=== PATIENT | male | born 1995 | race Hispanic/Latino ===

== ENCOUNTER 2019-12-04 14:36 | Emergency (ER) | payer OTHER | END 2019-12-04 17:03 | disposition home or self-care (01) | LOC: EDH 14:36 | DX: J06.9 Acute upper respiratory infection, unspecified (principal) | CPT/HCPCS: 87804 ==

== ENCOUNTER 2024-06-03 12:21 | Emergency (ER) | payer OTHER ==
[~2024-06-03] VITALS: Ht 162.6 cm; Wt 74.8 kg
[2024-06-03] MEDS ORDERED: EPINEPHRINE PF 1MG (1:1,000) 1 MG/ML AMP IM ONE (12:30)
[2024-06-03] MEDS: RACEPINEPHRINE HCL 2.25% 0.5 ML NEB SOLN NEB SCH (12:40)
[2024-06-03 12:42] VITALS: PULSE 73; RESP 18
[2024-06-03] MEDS: DiphenhydrAMINE HCL 50 MG/ML VIAL IV ONE (13:07)
[2024-06-03] MEDS: ONDANSETRON 4MG INJ IVP ONE (13:07)
[2024-06-03] MEDS: FAMOTIDINE 20MG VIAL IV ONE (13:07)
[2024-06-03] MEDS: DEXAMETHASONE SOD PHOSPHATE 4 MG/ML 1ML VIAL IVP ONE (13:07)
[2024-06-03] MEDS ORDERED: PRED5TAB PO (13:48)
[2024-06-03] MEDS ORDERED: DIPH25CA85 PO (13:48)
[2024-06-03 14:13] VITALS: BP 122/68; PULSE 71; RESP 18; O2SAT 98
== END 2024-06-03 14:12 | disposition home or self-care (01) ==
LOC: EDH 12:21
DX: T78.2XXA Anaphylactic shock, unspecified, initial encounter (principal); T63.461A Toxic effect of venom of wasps, accidental (unintentional), initial encounter; T78.40XA Allergy, unspecified, initial encounter; Z88.6 Allergy status to analgesic agent; X58.XXXA Exposure to other specified factors, initial encounter
CPT/HCPCS: 99284; 96374; 96375; 94640; J1100; J1200; J3490; J2405